=== PATIENT | female | born 1975 | race African-American/Black ===

== ENCOUNTER 2020-02-27 14:24 | Emergency (ER) | payer MEDICAID ==
[~2020-02-27] VITALS: Ht 172.7 cm; Wt 95.3 kg
[~2020-02-27 14:24] MED LIST: IBUPROFEN600 MG ORAL
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
[2020-02-27 14:37] VITALS: BP 138/81
[2020-02-27] MEDS ORDERED: Ketorolac 30mg Inj IM ONE (15:00)
[2020-02-27] MEDS ORDERED: HYDROcodone/Acetamin 5/325 tab ORAL ONE (15:00)
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
[2020-02-27 16:33] VITALS: BP 142/75
--- NOTE | 2020-02-27 16:54 | Diagnostic Imaging Report ---
EXAM: CT Lumbar Spine Without Intravenous Contrast CLINICAL HISTORY: PAIN TECHNIQUE: Axial computed tomography images of the lumbar spine without intravenous contrast. CTDI is 14.2 mGy and DLP is 538.5 mGy-cm. One or more of the following dose reduction techniques were used: automated exposure control, adjustment of the mA and/or kV according to patient size, use of iterative reconstruction technique. COMPARISON: None FINDINGS: Bones: Normal alignment. No acute fracture or bony lesion. Disc spaces: No subluxation. Mild degenerative changes of the spine. Mild spinal canal stenosis at L3-4 and L4-5. Mild bilateral neural foraminal stenoses at L1-2, L2-3, L3-4. Moderate right and mild left neural foraminal stenoses at L4-5. Moderate to severe bilateral neural foraminal stenoses at L5-S1. Soft tissues: Normal. Other: Normal. IMPRESSION: 1. No acute traumatic abnormality. 2. Mild degenerative changes as described above. Further evaluation of spinal canal contents could be performed with MRI if clinically indicated.
--- NOTE | 2020-02-27 17:04 | Diagnostic Imaging Report ---
EXAM: CT Chest Without Intravenous Contrast CLINICAL HISTORY: PAIN TECHNIQUE: Axial computed tomography images of the chest without intravenous contrast. CTDI is 7.40 mGy and DLP is 317.9 mGy-cm. One or more of the following dose reduction techniques were used: automated exposure control, adjustment of the mA and/or kV according to patient size, use of iterative reconstruction technique. COMPARISON: CT chest on 05/25/2019 FINDINGS: Lungs: Mild dependent atelectasis bilaterally. No focal consolidation. Pleural space: Unremarkable. No pneumothorax. No significant effusion. Heart: Unremarkable. No cardiomegaly. No significant pericardial effusion. Bones/joints: Mild degenerative changes of the spine. No acute fracture. No dislocation. Soft tissues: Unremarkable. Vasculature: Unremarkable. No thoracic aortic aneurysm. Lymph nodes: Unremarkable. No enlarged lymph nodes. Liver: Punctate calcification in the liver. IMPRESSION: No acute findings in the chest.
[2020-02-27] MEDS ORDERED: IBUPROFEN600 M1 ORAL (17:15)
[2020-02-27] MEDS ORDERED: ROBAXIN-750750 MG PO (17:15)
[2020-02-27 17:29] VITALS: BP 137/73
--- NOTE | 2020-02-27 17:29 | NUR ---
ER DISCHARGE NOTE: Patient is cleared to be discharged per ERMD, pt is aox4, on room air, with stable vital signs. pt was given dc and prescription instructions, pt was able to verbalize understanding, pt id band removed. pt is able to ambulate with steady gait. pt took all belongings. Pt educated on sent prescriptions.
== END 2020-02-27 17:30 | disposition home or self-care (01) ==
LOC: EMR 14:44
DX: S20.219A Contusion of unspecified front wall of thorax, initial encounter (principal); S16.1XXA Strain of muscle, fascia and tendon at neck level, initial encounter; S80.12XA Contusion of left lower leg, initial encounter; M54.89 Other dorsalgia; M62.838 Other muscle spasm; V43.52XA Car driver injured in collision with other type car in traffic accident, initial encounter; Y92.410 Unspecified street and highway as the place of occurrence of the external cause; Z88.2 Allergy status to sulfonamides; J98.11 Atelectasis
CPT/HCPCS: 71250; 72131; 96372; J1885; Z7502; 99284